=== PATIENT | male | born 1935 | race Caucasian/White ===

== ENCOUNTER 2018-05-17 13:04 | Emergency (ER) | payer OTHER ==
[2018-05-17 13:21] VITALS: BP 148/83
--- NOTE | 2018-05-17 13:33 | EDPHY ---
H & P Stated Complaint: rewdness and pain right great toe Time Seen by Provider: 05/17/18 13:23 HPI/ROS: CHIEF COMPLAINT: Right great toe pain HISTORY OF PRESENT ILLNESS: The patient is an 82-year-old man who has a ingrown toenail on the right great toe. He notes that this morning. It is slightly tender. It is ingrown on the lateral aspect. No purulence. No fever. No other pain or injury. No trauma. Severity: Moderate Modifying factors: None REVIEW OF SYSTEMS: Constitutional: denies: chills, fever, recent illness, recent injury EENTM: denies: blurred vision, double vision, nose congestion Respiratory: denies: cough, shortness of breath Cardiac: denies: chest pain, irregular heart rate, lightheadedness, palpitations Gastrointestinal/Abdominal: denies: abdominal pain, diarrhea, nausea, vomiting, blood streaked stools Genitourinary: denies: dysuria, frequency, hematuria, pain Musculoskeletal: See HPI Skin: denies: lesions, rash, jaundice, bruising Neurological: denies: headache, numbness, paresthesia, tingling, dizziness, weakness Hematologic/Lymphatic: denies: blood clots, easy bleeding, easy bruising Immunologic/allergic: denies: HIV/AIDS, transplant 10 systems reviewed and negative except as noted EXAM: GENERAL: Well-appearing, well-nourished and in no acute distress. HEAD: Atraumatic, normocephalic. EYES: Pupils equal round and reactive to light, extraocular movements intact, sclera anicteric, conjunctiva are normal. ENT: TMs normal, nares patent, oropharynx clear without exudates. Moist mucous membranes. NECK: Normal range of motion, supple without lymphadenopathy or JVD. LUNGS: Breath sounds clear to auscultation bilaterally and equal. No wheezes rales or rhonchi. HEART: Regular rate and rhythm without murmurs, rubs or gallops. ABDOMEN: Soft, nontender, normoactive bowel sounds. No guarding, no rebound. No masses appreciated. BACK: No CVA tenderness, no spinal tenderness, step-offs or deformities EXTREMITIES: Ingrown toenail right great toe lateral aspect. Mild erythema. No obvious purulence or fluctuance. NEUROLOGICAL: Cranial nerves II through XII grossly intact. Normal speech, normal gait. 5/5 strength, normal movement in all extremities, normal sensation , normal reflexes PSYCH: Normal mood, normal affect. SKIN: Warm, dry, normal turgor, no visible rashes or lesions. Source: Patient Exam Limitations: No limitations - Personal History Current Tetanus Diphtheria and Acellular Pertussis (TDAP): Unsure - Medical/Surgical History Hx Asthma: No Hx Chronic Respiratory Disease: No Hx Diabetes: No Hx Cardiac Disease: No Hx Renal Disease: No Hx Cirrhosis: No Hx Alcoholism: No Hx HIV/AIDS: No Hx Splenectomy or Spleen Trauma: No Other PMH: high cholesterol, Parkinsons,essential tremors,subdural hematoma, ortho surgery,appy - Family History Significant Family History: No pertinent family hx - Social History Smoking Status: Former smoker Alcohol Use: Sober Drug Use: None Constitutional: Initial Vital Signs Temperature (C) 36.6 C 05/17/18 13:16 Heart Rate 66 05/17/18 13:16 Respiratory Rate 16 05/17/18 13:16 Blood Pressure 148/83 H 05/17/18 13:16 O2 Sat (%) 93 05/17/18 13:16 O2 Delivery Mode Room Air Allergies/Adverse Reactions: amoxicillin Allergy (Verified 05/17/18 13:14) Home Medications: Medication Instructions Recorded Primidone 05/17/18 Propranolol HCl 05/17/18 Simvastatin 05/17/18 Medical Decision Making Procedures: Ingrown toenail: The patient's right great toe was anesthetized with a digital block 0.5% bupivacaine. The lateral aspect of his great toenail was then removed with scissors under sterile condition. The patient tolerated the procedure well. No obvious purulence. ED Course/Re-evaluation: Patient tolerated the procedure well. I will have him follow up with Podiatry. He does not appear to be trimming his toenails to close or wearing too tight of shoes. He does have a very slight fungal infection. Differential Diagnosis: Partial list of the Differential diagnosis considered include but were not limited to; ingrown toenail, felon and although unlikely based on the history and physical exam, I also considered paronychia, osteomyelitis, gout. I discussed these differential diagnoses and the plan with the patient as well as the usual and expected course. The patient understands that the diagnosis is provisional and that in medicine we are not always correct and that further workup is often warranted. Usual and customary warnings were given. All of the patient's questions were answered. The patient was instructed to return to the emergency department should the symptoms at all worsen or return, otherwise to followup with the physician as we discussed. Departure - Departure Disposition: Home, Routine, Self-Care Clinical Impression: Ingrown toenail of right foot Condition: Fair Instructions: Ingrown Nail (ED) Referrals: Gael Zavala NP [Primary Care Provider] - As per Instructions Truman Watson DPM [Doctor of Podiatric Medicine] - 5-7 days, call for appt.
== END 2018-05-17 14:01 | disposition home or self-care (01) ==
LOC: CED 13:04
DX: L60.0 Ingrowing nail (principal)